=== PATIENT | male | born 1955 | race African-American/Black ===

== ENCOUNTER 2019-03-02 11:00 | Inpatient (IN) | payer OTHER ==
[~2019-03-02] VITALS: Ht 177.8 cm; Wt 88.5 kg
[2019-03-02] VITALS (33 sets, daily range): BP systolic 125–222; BP diastolic 79–150
[~2019-03-02 11:00] MED LIST: ADALAT CC60 MG OR; ALDACTONE25 MG PO; ALDACTONE50 MG PO; ASPIR 8181 MG PO; CATAPRES0.2 MG PO; LISINOPRIL-HCT1 EAC2 PO; NIFEDIPINE XL30 MG PO; TOPROL XL50 MG PO
[2019-03-02] MEDS ORDERED: NIFEDIPINE ER60 M1 PO (11:16)
[2019-03-02] MEDS ORDERED: METOCLOPRAMIDE10 MG PO (11:16)
[2019-03-02 11:25] LABS: HEMATOCRIT 44.6 % (42.0-52.0); HEMOGLOBIN 15.1 gm/dL (14.0-18.0); MCH 31.2 pg (26.0-34.0); MCHC 33.8 g/dL (28.0-37.0); MCV 92.2 fL (80.0-100.0); PLATELET COUNT 175 thou/uL (150-400); RBC 4.84 mil/uL (4.50-6.00); RDW 13.6 % (10.5-14.5); WBC 3.7 thou/uL (4.0-11.0)
[2019-03-02 11:49] LABS: ALBUMIN 4.1 g/dL (3.4-5.0); CALCIUM 9.4 mg/dL (8.5-10.1); CREATININE 1.5 mg/dL (0.7-1.3); TOTAL BILIRUBIN 0.7 mg/dL (<0.1-1.0); TOTAL PROTEIN 8.6 g/dL (6.4-8.2); TROPONIN-I 0.06 ng/mL (<0.06)
[2019-03-02 11:50] LABS: POTASSIUM 2.7 mmol/L (3.5-5.1)
[2019-03-02 12:01] LABS: ABSOLUTE NEUTROPHILS 2.7 thou/uL (1.4-8.2); ATYPICAL LYMPHS 5 %; LARGE PLATELETS FEW
[2019-03-02 12:15] LABS: URINE BILIRUBIN NEGATIVE (Negative); URINE BLOOD TRACE (Negative); URINE CLARITY CLEAR; URINE COLOR YELLOW; URINE GLUCOSE-RANDOM* NEGATIVE (Negative); URINE KETONES 1+ (Negative); URINE LEUKOCYTES-REFLEX NEGATIVE (Negative); URINE NITRITE-REFLEX NEGATIVE (Negative); URINE PROTEIN (DIPSTICK) 1+ (Negative); URINE SPECIFIC GRAVITY 1.025 (1.005-1.035)
[2019-03-02 12:26] LABS: CASTS None Seen /LPF (None Seen); SQUAMOUS 0-3 Few /LPF (0-3); URINE RBC 0-2 Rare /HPF (0-2); URINE WBC-REFLEX 0-5 Rare /HPF (0-5)
[2019-03-02 12:27] LABS: BACTERIA-REFLEX None Seen /HPF (None Seen); CRYSTALS None Seen /LPF (None Seen)
[2019-03-02 15:10] LABS: ALBUMIN 4.1 g/dL (3.4-5.0); TOTAL PROTEIN 8.3 g/dL (6.4-8.2); TROPONIN-I 0.06 ng/mL (<0.06)
[2019-03-02 16:50] LABS: MAGNESIUM 2.1 mg/dL (1.8-2.4); PHOSPHORUS 1.8 mg/dL (2.5-4.9)
[2019-03-03] VITALS (60 sets, daily range): BP systolic 110–164; BP diastolic 78–114
[2019-03-03 03:15] LABS: HEMATOCRIT 43.4 % (42.0-52.0); HEMOGLOBIN 14.5 gm/dL (14.0-18.0); MCH 30.8 pg (26.0-34.0); MCHC 33.5 g/dL (28.0-37.0); MCV 91.9 fL (80.0-100.0); RBC 4.72 mil/uL (4.50-6.00); RDW 13.7 % (10.5-14.5); WBC 3.5 thou/uL (4.0-11.0)
[2019-03-03 03:27] LABS: CALCIUM 8.4 mg/dL (8.5-10.1); CREATININE 1.4 mg/dL (0.7-1.3); MAGNESIUM 1.9 mg/dL (1.8-2.4)
[2019-03-03 05:52] LABS: TSH 0.417 uIU/mL (0.358-3.740)
--- NOTE | 2019-03-03 11:24 | EKG ---
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 : 1955 Requested By: Rita Brewster Order Number: [id number] MD: Pablo Dodd Measurements Intervals Gates Rate: 91 P: -16 OK: 151 QRS: -4 QRSD: 94 T: 36 QT: 388 QTc: 478 Interpretive Statements Sinus rhythm Probable left atrial enlargement Abnormal R-wave progression, late transition Left ventricular hypertrophy Compared to ECG 11/07/2013 08:04:41 Electronically Signed On 03-03-2019 11:23:43 CLASSIFIER TENDER by Pablo Dodd [email or web address] <ELECTRONICALLY SIGNED> By: Pablo Dodd MD 03/03/19 1123 1107 Pablo Dodd MD /EPI
--- NOTE | 2019-03-03 16:16 | NUR ---
ASSESSMENTS AND INTERVENTIONS DOCCUMENTED. PATIENT STILL HAVING HIGH BP THROUGH OUT THE SHIFT. CARDIOLOGY ROUNDED NO NEW ORDERS. DR. JEWELL GIVING ORDERS FOR PO LISINOPRIL. CARDENE GTT ON AND BEING TITRATED SEE DOCUMENTATION. PATIENT RESTING IN BED AT THIS TIME. DIASTOLOIC PRESSURE CONTINUES TO BE IN THE 100'S. FAMILY CALLING AND UPDATED ABOUT POC. THE POC IS TO CONITNUE TO MONITOR BP AND TITRATE DOWN OFF OF CARDENE GTT
[2019-03-03 19:32] LABS: CALCIUM 8.3 mg/dL (8.5-10.1); CREATININE 1.4 mg/dL (0.7-1.3); PHOSPHORUS 2.8 mg/dL (2.5-4.9); POTASSIUM 3.5 mmol/L (3.5-5.1)
[2019-03-04] VITALS (16 sets, daily range): BP systolic 126–156; BP diastolic 84–116
[2019-03-04 04:50] LABS: HEMATOCRIT 44.1 % (42.0-52.0); HEMOGLOBIN 14.7 gm/dL (14.0-18.0); MCH 30.7 pg (26.0-34.0); MCHC 33.3 g/dL (28.0-37.0); MCV 92.1 fL (80.0-100.0); RBC 4.79 mil/uL (4.50-6.00); RDW 13.7 % (10.5-14.5); WBC 2.7 thou/uL (4.0-11.0)
[2019-03-04 05:15] LABS: CALCIUM 8.3 mg/dL (8.5-10.1); CREATININE 1.2 mg/dL (0.7-1.3); PHOSPHORUS 2.4 mg/dL (2.5-4.9); POTASSIUM 3.7 mmol/L (3.5-5.1)
--- NOTE | 2019-03-04 07:14 | NUR ---
CHART CHECK. REPORT GIVEN TO VIRI MALDONADO.
--- NOTE | 2019-03-04 07:17 | NUR ---
RECEIVED OT EVALUATION ORDERS THEN SHORTLY AFTER RECEIVED OT CANCELLATION ORDERS.
--- NOTE | 2019-03-04 09:29 | 2DMMODE ---
[facility] [place] [address] 2 D/M-MODE ECHOCARDIOGRAM Name: JAYDEN RAE Room #: 240-P [facility]#: [id number] Admission: 03/02/19 Attend Phys: Fausto Maldonado, Discharge: Date of : 53 Report #: [id number] THIS REPORT FOR: //name// APPROVED REPORT Study performed: 03/04/2019 08:14:22 EXAM: Comprehensive 2D, Doppler, and color-flow Echocardiogram Patient Location: ICU Room #: 240 Status: routine BSA: 2.07 HR: 80 bpm BP: 156/102 mmHg Rhythm: NSR Other Information Study Quality: Good Indications Chest Pain Hypertension/HDD 2D Dimensions RVDd: 31.24 mm IVSd: 18.59 (7-11mm) LVOT Diam: 26.91 (18-24mm) LVDd: 49.16 mm PWd: 17.54 (7-11mm) Ascending Ao: 41.66 (22-36mm) LVDs: 34.23 (25-40mm) Aortic Root: 40.01 mm IVC: 18.00 mm Volumes Left Atrial Volume (Systole) Single Plane 4CH: 46.67 mL Single Plane 2CH: 25.66 mL LA ESV Index: 18.00 mL/m2 Aortic Valve AoV Peak Chiki.: 1.04 m/s AO Peak Gr.: 4.30 mmHg LVOT Max P.27 mmHg LVOT Max V: 0.90 m/s JAGDEEP Vmax: 4.96 cm2 Mitral Valve E/A Ratio: 0.7 MV Decel. Time: 255.95 ms [facility] [address] [place] [address] 2 D/M-MODE ECHOCARDIOGRAM Name: JAYDEN RAE Apryl Room #: [address] [place] [address]#: [id number] Admission: 03/02/19 Attend Phys: Fausto Maldonado, Discharge: Date of : 53 Report #: [id number] MV E Max Chiki.: 0.46 m/s MV A Chiki.: 0.66 m/s MV PHT: 74.23 ms IVRT: 173.01 ms Pulmonary Valve PV Peak Chiki.: 0.99 m/s PV Peak Gr.: 3.89 mmHg Pulmonary Vein P Vein S: 0.47 m/s P Vein A: 0.27 m/s P Vein D: 0.36 m/s P Vein A Dur.: 103.8 msec P Vein S/D Ratio: 1.31 Tricuspid Valve RAP Estimate: 5.00 mmHg Left Ventricle The left ventricle is normal size. There is normal LV segmental wall motion. Severe concentric left ventricular hypertrophy. The left ventricular systolic function is normal. The left ventricular ejection fraction is within the normal range. LVEF is 55-60%. Mild diastolic dysfunction is present (impaired relaxation pattern). Right Ventricle The right ventricle is normal size. The right ventricular systolic function is normal. Atria The left atrium size is normal. The right atrium size is normal. Aortic Valve The aortic valve is normal in structure. Trace aortic regurgitation. There is no aortic valvular stenosis. Mitral Valve The mitral valve is normal in structure. There is no mitral valve regurgitation noted. No evidence of mitral valve stenosis. Tricuspid Valve The tricuspid valve is normal in structure. Trace tricuspid regurgitation. Unable to assess PA pressure. Pulmonic Valve The pulmonary valve is normal in structure. Trace pulmonic [facility] [address] [place] [address] 2 D/M-MODE ECHOCARDIOGRAM Name: JAYDEN RAE Room #: 240-P [facility]#: [id number] Admission: 03/02/19 Attend Phys: Fausto Maldonado, Discharge: Date of : 53 Report #: [id number] regurgitation. Great Vessels Aortic root is mildly dilated at 4.0 cm. The ascending aorta is mildly dilated at 4.2 cm. IVC is normal in size and collapses >50% with inspiration. Pericardium There is no pericardial effusion. <Conclusion> The left ventricle is normal size. Severe concentric left ventricular hypertrophy. The left ventricular systolic function is normal. Mild diastolic dysfunction is present (impaired relaxation pattern). The right ventricle is normal size. The left atrium size is normal. Trace aortic regurgitation. There is no mitral valve regurgitation noted. Trace tricuspid regurgitation. <ELECTRONICALLY SIGNED> By: Tomas Ray MD 03/04/19927 7 7 Tomas Ray MD /INF
--- NOTE | 2019-03-04 17:07 | NUR ---
ASSESSMENTS AND INTERVENTIONS DOCCUMENTED. PATIENT CONCERNED ABOUT BP. PATIENT OFF CARDENE GTT @ 1300. PATIENT HAD 1 INCREASE IN BP BUT REMAINED STABLE. TRANSFERES ORDERS RECIEVED. PATIENT TRANSFERRED TO CCU AT 1504. REPORT GIVEN TO SEFERINO MEREDITH.
--- NOTE | 2019-03-04 17:19 | NUR ---
PT CARE ASSUMED APPROX 1710. PT ALERT AND ORIENTED X4. DENIES PAIN AND SOA. VSS. UP WITH STEADY GAIT. PT AND DENY QUESTIONS OR CONCERNS REGARDING POC. NO DISTRESS NOTED.
[2019-03-05 00:11] VITALS: BP 141/99
--- NOTE | 2019-03-05 01:26 | NUR ---
PT AWOKE NEAR MIDNIGHT, STATED THAT HE FELT RIGHT SIDED CHEST DISCOMFORT, LIKE HE WAS "UNABLE" TO TAKE A DEEP BREATH. DID TRY SITTING UP IN BED TO WATCH TELEVISION, THEN MOVED TO THE CHAIR. AFTER APPROXIMATELY 15 MINUTES PT CALLED STAFF AND HIS O2 SAT WAS CHECKED ON ROOM AIR, 99%. THIS RN WAS NOTIFIED OF THAT FINDING AND COMPLAINT. ASSESSED THE PT AT APPROXIMATELY 0010, LUNGS CTA ON ROOM AIR. O2 AT 2L WAS PLACED. PT STILL HAD SAME COMPLAINT IN REGARDS TO HIS CHEST. PT ALSO STATED THAT HIS HAD SLIGHTLY BLURRY VISION IN HIS RIGHT EYE, CLEAR IN HIS LEFT. BOTH ARMS HAD EQUAL LOG PREPARER STRENGTH AND NO DRIFT, BOTH LEGS NO DRIFT. PT ABLE TO RECOGNIZE COMMON ITEMS IN THE ROOM SUCH HIS CELL PHONE AND THE FAN. PIN PRICK SENSATION TO BOTH SIDES FOOT TO HEAD WAS INTACT AND PT WAS ACCURATE WITH LOCATION. SPEECH WAS CLEAR. LOCATED [facility] PAPER WORK AND PT COULD ACCURATELY READ ALL SENTENCES AND IDENTIFY WHAT WAS OCCURING IN THE DRAWINGS. PT REPORTED THAT ALL THESE SX CAME ON SPONTANEOUSLY. HE BELIEVES THE OXYGEN ALONG WITH TYLENOL MAY HAVE RELIEVED THE CHEST DISCOMFORT/SOA. THE BLURRY EYE REPORTEDLY SPONTAINEOUSLY RESOLVED. PT REPORTS THAT WHILE HE WAS IN ICU HE WOULD WEAR OXYGEN AT NIGHT. PT WAS ENCOURAGED TO CALL STAFF AGAIN IF THESE SX REOCCURED.
[2019-03-05 04:27] VITALS: BP 154/100
[2019-03-05 05:08] LABS: HEMATOCRIT 44.2 % (42.0-52.0); HEMOGLOBIN 14.8 gm/dL (14.0-18.0); MCH 30.7 pg (26.0-34.0); MCHC 33.4 g/dL (28.0-37.0); MCV 91.9 fL (80.0-100.0); RBC 4.81 mil/uL (4.50-6.00); RDW 13.8 % (10.5-14.5); WBC 3.1 thou/uL (4.0-11.0)
[2019-03-05 05:10] LABS: CALCIUM 8.6 mg/dL (8.5-10.1); CREATININE 1.4 mg/dL (0.7-1.3); POTASSIUM 3.7 mmol/L (3.5-5.1)
[2019-03-05 08:10] VITALS: BP 132/100
[2019-03-05 11:57] VITALS: BP 130/102
[2019-03-05] MEDS ORDERED: FLOMAX0.4 MG PO (13:07)
[2019-03-05] MEDS ORDERED: METOPROLOL SUCC50 MG PO (13:07)
[2019-03-05] MEDS ORDERED: OSELTAMIVIR PHO75 MG PO (13:07)
[2019-03-05] MEDS ORDERED: HYDRALAZINE 5050 MG PO (13:07)
[2019-03-05] MEDS ORDERED: BENAZEPRIL HCL40 MG PO (13:11)
[2019-03-05] MEDS ORDERED: ALDACTONE50 MG PO (13:11)
[2019-03-05] MEDS ORDERED: MIRALAX17 GM PO (13:12)
[2019-03-05 13:53] VITALS: BP 130/102
[2019-03-05 13:54] VITALS: BP 130/102
--- NOTE | 2019-03-05 16:15 | NUR ---
PT CARE ASSUMED APPROX 0700. ASSESSMENT CHARTED. PT DENIES PAIN AND SOA. VSS. UP WITH STEADY GAIT. PT DISCHARGED AT THIS TIME. DISCHARGE EDUCATION COMPLETED WITH PT AND SPOUSE. BOTH DENY QUESTIONS OR CONCERNS REGARDING POST HOSPITAL CARE. ALL BELONGINGS IN PT POSSESSION. IV OUT, TELE OFF. SPOUSE PRESENT TO TRANSPORT PT HOME. PT LEFT UNIT TIMELY WITH HOSPITAL STAFF VIA WHEELCHAIR.
--- NOTE | 2019-03-07 17:32 | HC ---
[facility] [place] [address] CONSULTATION Name: JAYDEN RAE Room #: 218-P [facility]#: [id number] Admission: 03/02/19 Attend Phys: Fausto Maldonado MD Discharge: 03/05/19 Date of : 53 Report #: [id number] THIS REPORT FOR: //name// CC: Naresh Maldonado CARDIOLOGY CONSULTATION REASON FOR CONSULTATION: Hypertension. HISTORY OF PRESENT ILLNESS: The patient is a 63-year-old male with history of hypertension, who came into the ER with flu-like symptoms, nausea, vomiting, fatigue, etc. His blood pressure has been noted to be high. I am consulted to help with his blood pressure medications. REVIEW OF SYSTEMS: GENERAL: Positive fevers and chills. HEENT: No blurred vision. CARDIOVASCULAR: No chest pain. PULMONARY: Some cough. No shortness of breath. GASTROINTESTINAL: Some nausea and vomiting. GENITOURINARY: No dysuria. MUSCULOSKELETAL: Myalgias throughout. ENDOCRINE: No heat or cold intolerance. NEUROLOGIC: Having some headaches, but no focal weakness. PAST MEDICAL HISTORY: Hypertension. SOCIAL HISTORY: Does not smoke. FAMILY HISTORY: Noncontributory. MEDICATIONS: His meds have been reviewed include clonidine, aspirin, metoprolol, lisinopril with hydrochlorothiazide, spironolactone, and nifedipine. ALLERGIES: PENICILLIN. PHYSICAL EXAMINATION: VITAL SIGNS: Reviewed: GENERAL: No acute distress. HEENT: Oropharynx clear. NECK: Supple, no thyromegaly. HEART: Regular rate and rhythm. No murmurs, rubs or gallops. LUNGS: Clear to auscultation bilaterally. ABDOMEN: Soft, nontender, nondistended. EXTREMITIES: No clubbing, cyanosis, edema. NEUROLOGICAL: Cranial nerves 2-12 intact. [facility] [address] [place] [address] CONSULTATION Name: JAYDEN RAE Room #: 218-P [facility]#: [id number] Admission: 03/02/19 Attend Phys: Fausto Maldonado MD Discharge: 03/05/19 Date of : 53 Report #: [id number] IMAGING DATA: A 12-lead EKG shows sinus rhythm with no ischemic changes and evidence of LVH. Telemetry shows sinus rhythm. LABORATORY DATA: Reviewed. White count 3.7, hemoglobin 15, platelets 175. Chemistries: Sodium 137, potassium 2.7, BUN 13, creatinine 1.5. AST, ALT, alkaline phosphatase okay. Troponin indeterminate at 0.06. Chest x-ray, no acute process. ASSESSMENT: Hypertensive urgency/emergency. The patient's nausea and vomiting is improved. He is on a nicardipine drip, which he should continue. I will have then reintroduced his home medications and can wean the drip as tolerated. We will check an echo on Monday. We will continue to follow. <ELECTRONICALLY SIGNED> By: Pablo Dodd MD 03/07/19 1732 1554 0130 Pablo Dodd MD /nt
[2019-03-07 22:06] LABS: METANEPHRINE-PL 12 pg/mL (0-62); NORMETANEPHRINE - PL 171 pg/mL (0-145)
== END 2019-03-05 16:19 | disposition home or self-care (01) | DRG 304 ==
LOC: ER 11:00 → EROBS 12:17 → ICU 12:17 → 2N 03-04 16:57 → ENTRNSPT 03-05 15:50 → 2N 03-05 16:19
PROVIDERS: Nurse Practitioner Family; ADMIT Internal Medicine
DX: I16.1 Hypertensive emergency (principal); N17.0 Acute kidney failure with tubular necrosis; N17.8 Other acute kidney failure; J10.1 Influenza due to other identified influenza virus with other respiratory manifestations; E87.6 Hypokalemia; I12.9 Hypertensive chronic kidney disease with stage 1 through stage 4 chronic kidney disease, or unspecified chronic kidney disease; N18.3 Chronic kidney disease, stage 3 (moderate); E83.39 Other disorders of phosphorus metabolism; N40.0 Benign prostatic hyperplasia without lower urinary tract symptoms; Z90.49 Acquired absence of other specified parts of digestive tract; Z86.010 Personal history of colon polyps; Z79.82 Long term (current) use of aspirin; Z79.899 Other long term (current) drug therapy; Z88.0 Allergy status to penicillin
CPT/HCPCS: 10078; 10081

== ENCOUNTER 2019-03-07 09:28 | Emergency (ER) | payer OTHER ==
[~2019-03-07] VITALS: Ht 180.3 cm; Wt 91.2 kg
[~2019-03-07 09:28] MED LIST changes: +BENAZEPRIL HCL40 MG PO; +FLOMAX0.4 MG PO; +HYDRALAZINE 5050 MG PO; +METOCLOPRAMIDE10 MG PO; +METOPROLOL SUCC50 MG PO; +MIRALAX17 GM PO; +NIFEDIPINE ER60 M1 PO; +OSELTAMIVIR PHO75 MG PO
[2019-03-07] MEDS ORDERED: CLOTRIMAZOLE 1%15 G1 TOP (10:09)
[2019-03-07] MEDS ORDERED: MUPIROCIN15 GM TOP (10:09)
[2019-03-07 10:21] VITALS: BP 163/122
== END 2019-03-07 10:32 | disposition home or self-care (01) ==
LOC: ER 09:28
DX: N47.6 Balanoposthitis (principal); I10 Essential (primary) hypertension; Z98.890 Other specified postprocedural states; Z88.0 Allergy status to penicillin

== ENCOUNTER → 2019-04-02 | Outpatient (CLI) | payer OTHER ==
[~2019-04-02] MED LIST changes: +CLOTRIMAZOLE 1%15 G1 TOP; +MUPIROCIN15 GM TOP
== END ==
LOC: SJCVCIMAG 11:53
DX: I12.9 Hypertensive chronic kidney disease with stage 1 through stage 4 chronic kidney disease, or unspecified chronic kidney disease (principal); Z88.0 Allergy status to penicillin; Z79.01 Long term (current) use of anticoagulants; Z79.899 Other long term (current) drug therapy; Z72.89 Other problems related to lifestyle; Z79.82 Long term (current) use of aspirin